=== PATIENT | male | born 1985 | race Caucasian/White ===

== ENCOUNTER 2018-07-13 15:19 | Inpatient (IN) | payer OTHER ==
--- NOTE | 2018-07-13 15:26 | PDOC ---
Rapid Medical Evaluation Chief Complaint: Vomiting/Diarrhea Time Seen by Provider: 07/13/18 15:22 Medical Evaluation: Allergies Allergy/AdvReac Type Severity Reaction Status Date / Time No Known Allergies Allergy Verified 07/13/18 15:22 07/13/18 15:22 I have performed a brief in person evaluation of this patient. The patient presents with a chief complaint of: N/V/D Pt states he has had 2-3 days of N/V/D. He was on abx for cellulitis of the leg two weeks ago. Pertinent PE: Skin: Clear Lungs: Clear Heart: RRR Abd: Nontender MS: Moves all extremities without difficulty. Neuro: Alert and oriented Psych: Appropriate affect I have ordered the following: basic labs and C diff The patient will proceed to: pt will go to the main ED for further evaluation. Discharge Disposition - Diagnosis Diarrhea Qualifiers: Diarrhea type: unspecified type Qualified Code(s): R19.7 - Diarrhea, unspecified - Referrals - Patient Instructions - Post Discharge Activity
[2018-07-13] MEDS ORDERED: SODIUM CHLORIDE 1,000 ML IV STA ×2 (17:51→19:40)
--- NOTE | 2018-07-13 17:54 | PDOC ---
Attending Attestation - HPI HPI: 07/13/18 19:13 The patient is a 33 yo M with a significant past medical history of recent Tx for L leg cellulitis (dx 2-3 wks ago and completed abx 1 wk ago) who presents with fevers, chills, body aches, SIMON, nasal congestion, neck pain, nausea, vomiting and diarrhea for about 48 hours. He states he has not been able to keep food down. SH: etoh occasional. smoke and marijuana quit 10 yr ago. All: nkda PSH: tonsillectomy. adenoids removed - Physicial Exam PE: 07/13/18 19:24 GENERAL: Well-appearing, Obese, No apparent distress. HEENT: Normocephalic, atraumatic. PERRL, EOM intact. NECK (+) Pain with extreme flexion and extension. NO rigidity. CARDIOVASCULAR: (+) Tachycardic. Normal S1, S2. Regular rhythm. PULMONARY: Clear to auscultation bilaterally. ABDOMEN: Protuberant. Soft, non-distended, non-tender. EXTREMITIES: (+) RLE erythematous consistent with cellulitis. Normal ROM in all four extremities. No gross deformities. SKIN: Warm, dry. No rash NEUROLOGICAL: No focal neurological deficits. AAox3. MS 5/5. No focal weakness. - Medical Decision Making 07/13/18 19:18 Documentation prepared by Julee Carrera, acting as medical insurance claims processor for Meagan Ny MD EXAM#: TYPE/EXAM: RESULT: [id number] RAD/CHEST X-RAY PORTABLE* HISTORY PROVIDED: Rule out sepsis. A single frontal portable projection of the chest at 6:55 PM is submitted. The heart size is enlarged. The lung aguilar are free of pulmonary infiltrates or pleural effusions. IMPRESSION: Cardiomegaly, no acute disease. Reported By: Lionel Mendoza MD 07/13/181934 <Julee Carrera - Last Filed: 07/13/18 19:43> - Resident Resident Name: Samy Marie - ED Attending Attestation I have performed the following: I have examined & evaluated the patient, The case was reviewed & discussed with the resident, I agree w/resident's findings & plan, Exceptions are as noted - Medical Decision Making 07/14/18 02:11 imp cellulitis admitted med.surg <Meagan Ny - Last Filed: 07/14/18 02:11>
[2018-07-13] MEDS ORDERED: ACETAMINOPHEN 1000 MG/100 ML VIAL (NON FORMULARY) IVPB ONE (17:55)
[2018-07-13] MEDS ORDERED: VANCOMYCIN 1,000 MG in DEXTROSE 5%-WATER - 250 ML IVPB ONE (18:09)
[2018-07-13] MEDS ORDERED: PIPERACILLIN/TAZOB 3.375 GM 3.375 GM in DEXTROSE 5%-WATER - 50 ML IVPB ONE (18:10)
--- NOTE | 2018-07-13 18:16 | PDOC ---
History of Present Illness - General Chief Complaint: Vomiting/Diarrhea Stated Complaint: WEAKNESS, DIARRHEA Time Seen by Provider: 07/13/18 15:22 - History of Present Illness Initial Comments: 07/13/18 18:19 33 yo M w/ no sig PMH other than recently tx for L leg cellulitis (dx 2-3 wks ago and completed abx 1 wk ago), p/w fevers, chills, body aches, SIMON, neck pain, n/v/d x1d. Pt says 2 days ago he had cold like sxs but then yesterday he began having multiple episodes of NBNB vomit and non bloody diarrhea (dozen episodes) . pt has not been able to keep food down. Also began having pounding b/l SIMON and neck stiffness/pain. Says when he moves head up it hurts neck. Denies urinary sxs abd pain, blood in stools, recent travel, hx STDs, photophobia. Took nyquil but did not help. 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 Has not had flu vaccine SH: etoh occasional. smoke and marijuana quit 10 yr ago. Meds: none All: nkda PSH: tonsillectomy. adenoids removed Past History - Past Medical History Allergies/Adverse Reactions: Allergies Allergy/AdvReac Type Severity Reaction Status Date / Time No Known Allergies Allergy Verified 07/13/18 15:22 Home Medications: Ambulatory Orders NK [No Known Home Medication] 07/13/18 COPD: No Other medical history: MORBID OBESITY - Immunization History Td Vaccination: Yes Immunization Up to Date: No - Suicide/Smoking/Psychosocial Hx Smoking Status: No Smoking History: Never smoked Number of Cigarettes Smoked Daily: 2 Information on smoking cessation initiated: No Hx Alcohol Use: No Drug/Substance Use Hx: No Substance Use Type: None Review of Systems - Review of Systems Constitutional: Yes: See HPI HEENTM: Yes: See HPI Respiratory: Yes: See HPI Cardiac (ROS): Yes: See HPI ABD/GI: Yes: See HPI : Yes: See HPI Musculoskeletal: Yes: See HPI Integumentary: Yes: See HPI Neurological: Yes: See HPI Endocrine: Yes: See HPI Hematologic/Lymphatic: Yes: See HPI *Physical Exam - Vital Signs Last Vital Signs Temp Pulse Resp BP Pulse Ox 100.5 F H 103 H 22 H 140/86 95 07/13/18 15:23 07/13/18 15:23 07/13/18 15:23 07/13/18 15:23 07/13/18 15:23 - Physical Exam Comments: 07/13/18 18:13 General: Well-nourished, mild distress, morbidly obese HEENT: NCAT, MMM Neck: TTP along posterior. neck pain when lifting head. no lymphadenopathy Respiratory: CTAB cardio: tachycardia RR S1 S2 no m/r/g. Abdomen: +BS , soft, NTND Extremities: radial 2+ b/l. R medial leg erythema warm to touch and TTP Skin: R medial leg erythema warm to touch and TTP Neuro: Alert and oriented x3, strength sensation grossly intact. Psych: Normal mood and affect ED Treatment Course - RADIOLOGY Radiology Studies Ordered: Category Date Time Status CHEST X-RAY PORTABLE* [RAD] Stat Radiology 07/13/18 17:49 Ordered Medical Decision Making - Medical Decision Making 07/13/18 18:16 33 yo M w/ no sig PMH other than recently tx for L leg cellulitis (dx 2-3 wks ago and completed abx 1 wk ago), p/w fevers, chills, body aches, SIMON, neck pain, n/v/d x1d. Now appears to have R leg cellulitis on exam. 100.5 F tachycardia tachypneac. Ddx: sepsis 2/2 cellulitis, bacteremia, flu, C. diff, meningitis (works in [place]) We will initiate sepsis w/u -CBC, CMP, coags, lactic, trop, VBG, EKG, CXR, UA, Ucx, Bcx -C diff toxin antigen -Flu swab -IVF bolus -IV vanc/zosyn -IV tylenol 07/13/18 19:[address] Salgado will f/u on labs and cx pt will likely require inpatient admission for sepsis 2/2 cellulitis *DC/Admit/Observation/Transfer Diagnosis at time of Disposition: Diarrhea Qualifiers: Diarrhea type: unspecified type Qualified Code(s): R19.7 - Diarrhea, unspecified - Referrals - Patient Instructions - Post Discharge Activity
[2018-07-13 19:16] LABS: VENOUS PC02 40.1 mmHg (38-52); VENOUS PH 7.45 (7.32-7.42); VENOUS PO2 38.7 mmHg (28-48)
[2018-07-13] MEDS ORDERED: ACETAMINOPHEN INJECTION 100 ML IVPB ONE (19:24)
[2018-07-13] MEDS ORDERED: PIPERACILLIN/TAZOB 3.375 GM 3.375 GM/50 ML BAG IVPB ONE (19:24)
[2018-07-13 19:25] LABS: BASO % 0.5 % (0-2.0); HEMATOCRIT 41.5 % (35.4-49); HEMOGLOBIN 13.7 GM/dL (11.7-16.9); LYMPH % 13.3 % (8-40); MEAN CELL VOLUME 84.6 fl (80-96); MEAN PLT VOLUME 8.7 fl (7.5-11.1); MONO % 10.9 % (3.8-10.2); NEUT % 75.3 % (42.8-82.8); PLATELET COUNT 224 K/MM3 (134-434); RBC 4.91 M/mm3 (4.00-5.60); RDW 14.2 % (11.9-15.9); WHITE BLOOD COUNT 18.7 K/mm3 (4.0-10.0)
[2018-07-13 19:37] LABS: INR 1.28 (0.83-1.09); PROTHROMBIN TIME (PATIENT) 15.1 SEC (9.7-13.0)
[2018-07-13 19:39] LABS: ACTIVATED PTT 28.9 SECONDS (25.2-36.5)
--- NOTE | 2018-07-13 20:19 | PDOC ---
*Physical Exam - Vital Signs Last Vital Signs Temp Pulse Resp BP Pulse Ox 102.5 F H 103 H 22 H 140/86 95 07/13/18 19:32 07/13/18 15:23 07/13/18 15:23 07/13/18 15:23 07/13/18 15:23 - Physical Exam Comments: GENERAL: Well-appearing, well-nourished. No apparent distress. HEENT: Normocephalic, atraumatic. PERRL, EOM intact. CARDIOVASCULAR: Tachycardic. Normal S1, S2. Regular rhythm. PULMONARY: Clear to auscultation bilaterally. ABDOMEN: Soft, non-distended, non-tender. EXTREMITIES: R Leg: R medial leg erythema warm to touch and TTP Normal ROM in all four extremities. No gross deformities. SKIN: R Leg: R medial leg erythema warm to touch and TTP NEUROLOGICAL: No focal neurological deficits. ED Treatment Course - LABORATORY CBC & Chemistry Diagram: 07/13/18 19:09 07/13/18 19:54 - ADDITIONAL ORDERS Additional order review: Laboratory Results 07/13/18 07/13/18 07/13/18 19:09 19:09 19:09 PT with INR 15.10 H INR 1.28 H PTT (Actin FS) 28.9 VBG pH POC VBG pCO2 POC VBG pO2 Mixed VBG HCO3 Sodium Potassium Chloride Carbon Dioxide Anion Gap BUN Creatinine Creat Clearance w eGFR Random Glucose Lactic Acid 1.1 Calcium Total Bilirubin AST ALT Alkaline Phosphatase Troponin I Cancelled Total Protein Albumin Lipase 07/13/18 07/13/18 19:09 18:45 PT with INR INR PTT (Actin FS) VBG pH 7.45 H POC VBG pCO2 40.1 POC VBG pO2 38.7 Mixed VBG HCO3 27.4 H Sodium Cancelled Potassium Cancelled Chloride Cancelled Carbon Dioxide Cancelled Anion Gap Cancelled BUN Cancelled Creatinine Cancelled Creat Clearance w eGFR Cancelled Random Glucose Cancelled Lactic Acid Calcium Cancelled Total Bilirubin Cancelled AST Cancelled ALT Cancelled Alkaline Phosphatase Cancelled Troponin I Total Protein Cancelled Albumin Cancelled Lipase Cancelled 07/13/18 19:09 Influenza Types A,B Antigen - Final Nasopharyngeal Swab - Final 07/13/18 19:09 RBC 4.91 MCV 84.6 MCHC 33.0 RDW 14.2 MPV 8.7 Neutrophils % 75.3 Lymphocytes % 13.3 Monocytes % 10.9 H Eosinophils % 0.0 Basophils % 0.5 - Medications Given in the ED: ED Medications Discontinued Medications Generic Name Dose Route Start Last Admin Trade Name Hugo PRN Reason Stop Dose Admin Acetaminophen 1,000 mg 07/13/18 17:55 07/13/18 19:31 Ofirmev Injection - IVPB 07/13/18 17:56 1,000 mg ONCE ONE Administration Sodium Chloride 1,000 mls @ 1,000 mls/hr 07/13/18 17:51 07/13/18 19:17 Normal Saline - IV 07/13/18 18:50 1,000 mls/hr ASDIR STA Administration Piperacillin Sod/Tazobactam 50 mls @ 100 mls/hr 07/13/18 18:10 07/13/18 20:04 Sod 3.375 gm/ Dextrose IVPB 07/13/18 18:39 100 mls/hr ONCE ONE Administration Protocol Medical Decision Making - Medical Decision Making Received patient as a sign out Fever: 102.5 HR: 103 RR: 22 WBC: 18.7 Source of infection: R leg cellulitis Patient is septic. We have started vanc and zosyn here in the ED. Will admit patient for further care. *DC/Admit/Observation/Transfer Diagnosis at time of Disposition: Sepsis Diarrhea Qualifiers: Diarrhea type: unspecified type Qualified Code(s): R19.7 - Diarrhea, unspecified - Discharge Dispostion Condition at time of disposition: Guarded Decision to Admit order: Yes - Referrals - Patient Instructions - Post Discharge Activity
[2018-07-13] MEDS ORDERED: VANCOMYCIN 1 GRAM (PRE-DOCKED) 1,000 MG/250 ML BAG IVPB ONE (20:25)
[2018-07-13 20:28] LABS: ALK PHOS 92 U/L (45-117); ANION GAP 9 MMOL/L (8-16); BILIRUBIN,TOTAL 0.5 mg/dL (0.2-1); BLOOD UREA NITROGEN 11 mg/dL (7-18); CALCIUM 8.4 mg/dL (8.5-10.1); CHLORIDE 104 mmol/L (98-107); CO2 26 mmol/L (21-32); GLUCOSE,RANDOM 96 mg/dL (74-106); POTASSIUM 3.3 mmol/L (3.5-5.1); SGOT/AST 48 U/L (15-37); SGPT/ALT 38 U/L (13-61); SODIUM 140 mmol/L (136-145); TOT PROT 6.7 g/dl (6.4-8.2)
--- NOTE | 2018-07-13 22:33 | PN ---
Teaching Attending Note Name of Resident: Jose Raul Arita ATTENDING PHYSICIAN STATEMENT I saw and evaluated the patient. I reviewed the resident's note and discussed the case with the resident. I agree with the resident's findings and plan as documented. SUBJECTIVE: Patient is a 33 year old man recently treated for Left leg cellulitis (dx 2-3 wks ago and completed abx 1 wk ago), presents with fevers, chills, body aches, headache, neck pain, nausea, vomiting and diarrhea for 1 day. Says that 2 days ago he had cold like symptoms but then yesterday he began having multiple episodes of NBNB vomit and non bloody diarrhea (dozen episodes). Arora not been able to keep food down. Also began having pounding headache and neck stiffness/ pain. Says when he moves head up it hurts neck. Denies urinary symptoms, abd pain, blood in stools, recent travel, hx STDs, photophobia. Took nyquil but did not help. 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 Has not had flu vaccine. Neck stiffness and headache stopped. OBJECTIVE: Alert and morbidly obese Vital Signs Period Temp Pulse Resp BP Sys/Forrester Pulse Ox Last 24 Hr 99.6 F-102.5 F 98-103 20-22 140-157/86-88 95-96 HEENT: No Jaundice, eye redness or discharge, PERRLA, EOMI. Normocephalic, atraumatic. External ears are normal and hearing is grossly intact. No nasal discharge. Neck: Supple, nontender. No palpable adenopathy or thyromegaly. No JVD Chest: Good effort. Clear to auscultation and percussion. Heart: Regular. No S3, rub or murmur Abdomen: Not distended, soft, nontender and no HSM. No rebound or guarding. Normoactive bowel sounds. Ext: Peripheral pulses intact. Right lower leg erythema, warm and tender. Skin: Warm and dry. No petechiae, rash or ecchymosis. Neuro: Alert. Oriented x3. CN 2-12 grossly intact. Sensation grossly intact in all four extremities and DTR are symmetric. Home Medications Medication Instructions Recorded NK [No Known Home Medication] 07/13/18 Abnormal Lab Results 1007/13/18 07/13/18 18:45 19:09 19:09 WBC 18.7 H Absolute Neuts (auto) 14.1 H Monocytes % 10.9 H PT with INR 15.10 H INR 1.28 H VBG pH 7.45 H Mixed VBG HCO3 27.4 H Potassium Calcium AST Albumin 07/13/18 19:54 WBC Absolute Neuts (auto) Monocytes % PT with INR INR VBG pH Mixed VBG HCO3 Potassium 3.3 L Calcium 8.4 L AST 48 H Albumin 3.0 L ASSESSMENT AND PLAN: 1. Sepsis due to right leg cellulitis - Will treat with IV Vancomycin and ensure adequate hydration. He recently got 2 weeks of antibiotics (does not remember the name) for left leg cellulitis, so diarrhea may due to C. Diff colitis or viral gastroenteritis in view of his constitutional symptoms. Send stool for C.diff toxin, stool analyses, check Mg+, give IV and PO KCL and consult ID. Will expand antibiotics coverage if CT abdomen/pelvis shows colitis. Hypokalemia likely due to diarrhea and vomiting. 2. Morbid Obesity - Will provide patient all the necessary assistance, counseling and positive reinforcement to facilitate weight loss. Consult hospital technician. 3. DVT prophylaxis - Lovenox 40 mg SQ q 12 hours. 4. Advance directives - Full code
--- NOTE | 2018-07-13 23:36 | HP ---
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 Pt endorses he has experienced approximately 12-13 episodes of watery, loose diarrhea. He has vomited two times since friday; vomitus is described as nonbillious and nonbloody. In addition, pt states he has felt rather warm and has been perspiring more. Endorses he also was having a headache during this time which has now subsided. According to pt, he was recently treated for a cellulites infection of his left lower extremity approximately 2-3 weeks ago. Pt was treated at [facility] urgent care on [facility] in [place] where he was sent home with 3 oral antibiotic medications and 1 topical antibiotic medication. Pt cannot recall names of the medications he was taking for his Cellulites. Pt does endorse frequently injuring his lower extremities while at work, often banging his legs while walking. Currently denies chest pain, shortness of breath, or lightheadedness. ER course was notable for: (1) WBC 18.2 (2) Chest xray--> Cardiomegaly (3) Potassium 3.3 Recent Travel: Denies PAST MEDICAL HISTORY: Denies PAST SURGICAL HISTORY: tonsillectomy. Adenoids removed Social History: Smoking:denies Alcohol: denies Drugs: denies Family History: Allergies No Known Allergies Allergy (Verified 07/13/18 15:22) HOME MEDICATIONS: Home Medications Medication Instructions Recorded NK [No Known Home Medication] 07/13/18 REVIEW OF SYSTEMS CONSTITUTIONAL: PRESENT fever, chills, diaphoresis, generalized weakness, malaise HEENT: Absent: rhinorrhea, nasal congestion, throat pain, throat swelling, difficulty swallowing, mouth swelling, ear pain, eye pain, visual changes CARDIOVASCULAR: Absent: chest pain, syncope, palpitations, irregular heart rate, lightheadedness , peripheral edema RESPIRATORY: Absent: cough, shortness of breath, dyspnea with exertion, orthopnea, wheezing, stridor, hemoptysis GASTROINTESTINAL: PRESENT: abdominal pain, nausea, vomiting, diarrhea GENITOURINARY: Absent: dysuria, frequency, urgency, hesitancy, hematuria, flank pain, genital pain MUSCULOSKELETAL: Absent: myalgia, arthralgia, joint swelling, back pain, neck pain SKIN: Absent: rash, itching, pallor HEMATOLOGIC/IMMUNOLOGIC: Absent: easy bleeding, easy bruising, lymphadenopathy, frequent infections ENDOCRINE: Absent: unexplained weight gain, unexplained weight loss, heat intolerance, cold intolerance NEUROLOGIC: Absent: headache, focal weakness or paresthesias, dizziness, unsteady gait, seizure, mental status changes, bladder or bowel incontinence PSYCHIATRIC: Absent: anxiety, depression, suicidal or homicidal ideation, hallucinations. PHYSICAL EXAMINATION Vital Signs - 24 hr 07/13/18 07/13/18 07/13/18 15:23 19:32 20:44 Temperature 100.5 F H 102.5 F H 99.6 F Pulse Rate 103 H 98 H Pulse Rate [ Left Apical] Respiratory 22 H 20 Rate Blood Pressure 140/86 157/88 Blood Pressure [Right Arm] O2 Sat by Pulse 95 96 Oximetry (%) 07/13/18 22:53 Temperature 98.5 F Pulse Rate Pulse Rate [ 85 Left Apical] Respiratory 18 Rate Blood Pressure Blood Pressure 128/84 [Right Arm] O2 Sat by Pulse 98 Oximetry (%) GENERAL: AAOx3, NAD HEAD: NC/AT EYES: EOMI, PERRLA EARS, NOSE, THROAT: MMM NECK: Supple, no jvd, no adenopathy LUNGS: Decreased BS at bases. HEART: RRR, No MRG, S1 S2 ABDOMEN: Morbidly obese MUSCULOSKELETAL:Full ROM throughout UPPER EXTREMITIES: No CCE LOWER EXTREMITIES: Cellulites R leg, onychomycosis b/l feet. No cracks or tears in heels or soles of feet NEUROLOGICAL: CN 2-12 intact PSYCHIATRIC: Cooperative. Good eye contact. Appropriate mood and affect. SKIN: Cellulites right lower extremity. Laboratory Results - last 24 hr 07/13/18 07/13/18 07/13/18 18:45 19:09 19:09 WBC 18.7 H RBC 4.91 Hgb 13.7 Hct 41.5 MCV 84.6 MCH 28.0 MCHC 33.0 RDW 14.2 Plt Count 224 MPV 8.7 Absolute Neuts (auto) 14.1 H Neutrophils % 75.3 Lymphocytes % 13.3 Monocytes % 10.9 H Eosinophils % 0.0 Basophils % 0.5 Nucleated RBC % 0 PT with INR INR PTT (Actin FS) VBG pH 7.45 H POC VBG pCO2 40.1 POC VBG pO2 38.7 Mixed VBG HCO3 27.4 H Sodium Cancelled Potassium Cancelled Chloride Cancelled Carbon Dioxide Cancelled Anion Gap Cancelled BUN Cancelled Creatinine Cancelled Creat Clearance w eGFR Cancelled Random Glucose Cancelled Lactic Acid Calcium Cancelled Total Bilirubin Cancelled AST Cancelled ALT Cancelled Alkaline Phosphatase Cancelled Troponin I Total Protein Cancelled Albumin Cancelled Lipase Cancelled 07/13/18 07/13/18 07/13/18 19:09 19:09 19:09 WBC RBC Hgb Hct MCV MCH MCHC RDW Plt Count MPV Absolute Neuts (auto) Neutrophils % Lymphocytes % Monocytes % Eosinophils % Basophils % Nucleated RBC % PT with INR 15.10 H INR 1.28 H PTT (Actin FS) 28.9 VBG pH POC VBG pCO2 POC VBG pO2 Mixed VBG HCO3 Sodium Potassium Chloride Carbon Dioxide Anion Gap BUN Creatinine Creat Clearance w eGFR Random Glucose Lactic Acid 1.1 Calcium Total Bilirubin AST ALT Alkaline Phosphatase Troponin I Cancelled Total Protein Albumin Lipase 07/13/18 19:54 WBC RBC Hgb Hct MCV MCH MCHC RDW Plt Count MPV Absolute Neuts (auto) Neutrophils % Lymphocytes % Monocytes % Eosinophils % Basophils % Nucleated RBC % PT with INR INR PTT (Actin FS) VBG pH POC VBG pCO2 POC VBG pO2 Mixed VBG HCO3 Sodium 140 Potassium 3.3 L Chloride 104 Carbon Dioxide 26 Anion Gap 9 BUN 11 Creatinine 1.0 Creat Clearance w eGFR > 60 Random Glucose 96 Lactic Acid Calcium 8.4 L Total Bilirubin 0.5 AST 48 H ALT 38 Alkaline Phosphatase 92 Troponin I Total Protein 6.7 Albumin 3.0 L Lipase ASSESSMENT/PLAN: 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 # Right Leg Cellulitis -Pt has experienced multiple episodes (12-13) of watery, nonbloody diarrhea since Friday. May have C Diff infection in light of recent Cellulites treatment with possibly clindamycin (Pt doesn't recall name of medication). -Vanco 1 gm q12 hr -I.D Consult #Possible C-Diff infection 2/2 cellulites treatment with Clindamycin? - Stool For C-Diff Antigen -ID Consult - 2/4 SIRS Criteria met--> HR > 90 and WBC 18.5. Likely source leg cellulites or possibly C-Diff. FEN NS@100cc/hr Monitor Potassium level Regular Diet DVT ppx: Heparin SQ TID Dispo: Continue to monitor Visit type - Emergency Visit Emergency Visit: Yes ED Registration Date: 07/13/18 Care time: The patient presented to the Emergency Department on the above date and was hospitalized for further evaluation of their emergent condition. - New Patient This patient is new to me today: Yes Date on this admission: 07/14/18 - Critical Care Critical Care patient: No
[2018-07-14] MEDS ORDERED: SODIUM CHLORIDE 1,000 ML IV SCH (00:15)
[2018-07-14] MEDS ORDERED: POTASSIUM CHLORIDE TABS 20 MEQ TABLET.ER (FP) PO ONE ×2 (01:45→02:48)
[2018-07-14] MEDS ORDERED: HEPARIN NA (PORCINE) 5,000 UNITS/ML 1ML VIAL ONE (01:45)
[2018-07-14] MEDS: HEPARIN NA (PORCINE) 5,000 UNITS/ML 1ML VIAL SQ SCH ×4 (02:17→21:44)
[2018-07-14] MEDS: POTASSIUM CHLORIDE TABS 20 MEQ TABLET.ER (FP) PO SCH ×2 (02:59→10:53)
[2018-07-14 04:57] VITALS: BMI 55.8
[2018-07-14 07:59] LABS: BASO % 0.5 % (0-2.0); EOS % 0.1 % (0-4.5); HEMATOCRIT 35.7 % (35.4-49); LYMPH % 17.6 % (8-40); MCH 28.5 pg (25.7-33.7); MCHC 33.7 g/dl (32.0-35.9); MEAN CELL VOLUME 84.6 fl (80-96); MEAN PLT VOLUME 8.2 fl (7.5-11.1); MONO % 9.6 % (3.8-10.2); NEUT % 72.2 % (42.8-82.8); PLATELET COUNT 180 K/MM3 (134-434); RBC 4.22 M/mm3 (4.00-5.60); RDW 14.1 % (11.9-15.9); WHITE BLOOD COUNT 12.1 K/mm3 (4.0-10.0)
[2018-07-14 08:11] LABS: INR 1.32 (0.83-1.09); PROTHROMBIN TIME (PATIENT) 15.6 SEC (9.7-13.0)
[2018-07-14 08:14] LABS: ACTIVATED PTT 27.3 SECONDS (25.2-36.5)
[2018-07-14 08:40] LABS: ANION GAP 9 MMOL/L (8-16); BLOOD UREA NITROGEN 13 mg/dL (7-18); CALCIUM 7.8 mg/dL (8.5-10.1); CHLORIDE 105 mmol/L (98-107); CO2 26 mmol/L (21-32); CREATININE 0.8 mg/dL (0.55-1.3); GLUCOSE,RANDOM 91 mg/dL (74-106); MAGNESIUM 2.2 mg/dL (1.8-2.4); PHOSPHOROUS 2.1 mg/dL (2.5-4.9); POTASSIUM 3.3 mmol/L (3.5-5.1); SODIUM 140 mmol/L (136-145)
[2018-07-14] MEDS ORDERED: FLU VACCINE QUAD 60 MCG/0.5 ML (MDV 18-19) IM ONE (10:00)
[2018-07-14] MEDS ORDERED: ACETAMINOPHEN 325 MG TABLET (FP) PO PRN (10:51)
--- NOTE | 2018-07-14 11:45 | PN ---
Progress Note (short form) - Note Progress Note: ID Consult dictated Sepsis ? skin source Cellulitis R LE ? C difficile colitis Await c/s Continue vancomycin/ zosyn
--- NOTE | 2018-07-14 12:23 | CONS ---
DATE OF CONSULTATION: DATE OF DICTATION: 07/14/2018 HISTORY OF PRESENT ILLNESS: The patient is a 33-year-old morbidly obese, but otherwise healthy male who is evaluated for sepsis syndrome. The patient states that approximately 2 weeks ago, he had developed cellulitis of his left lower extremity. He took 2 oral antibiotics, the names of which he was unsure of, however, he reports completing the antibiotics approximately 2 weeks ago. This past July 11, he developed abrupt onset of fever, body ache, neck pain, nausea, vomiting, and diarrhea. The onset was approximately 1 week after completing the antibiotics. He reports the cellulitis had completely resolved. He presented to the emergency room where he was noted to be febrile, tachycardic, and tachypneic. He had a markedly elevated white blood cell count of 18,000. Cultures were obtained. He was empirically treated with vancomycin and Zosyn. A CT scan of the abdomen and pelvis was performed because of abdominal complaints, gastrointestinal complaints, and showed some gallstones, but no evidence of acute cholecystitis, no evidence of colitis. Patient reports feeling better. He still has some headache and neck pain. He reports nausea, vomiting, and diarrhea have improved. Cultures are pending. His C. difficile is also pending. PAST MEDICAL HISTORY: Negative. ALLERGIES: No known allergies. MEDICATIONS: No medications. 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 A nonsmoker, occasional EtOH. He lives alone. No ill contacts. However, he reports being in contact with many people at his employment. SYSTEMS REVIEW: Neurologic: No loss of consciousness, seizure activity, or focal weakness. Cardiac: Negative for chest pain or palpitations. Respiratory: Negative for cough or sputum production. Gastrointestinal: As per HPI. Genitourinary: Negative for urinary tract infection. LABORATORY DATA: White count 18,000, hematocrit 35.7, platelet count 180. BUN 13, creatinine 0.8, lactic acid 1.1. Flu swab negative. Blood cultures pending. Chest x-ray cardiomegaly, no infiltrate. Urine is pending. PHYSICAL EXAMINATION: General: He is awake. He is morbidly obese. He is not acutely toxic-appearing. Vital signs: Temperature 98.3, maximum temperature 102.5, blood pressure 125/69, pulse 90 and regular, respirations 20 per minute. HEENT: Sclerae anicteric. Oropharynx negative. Neck: Supple. Heart: Heart sounds S1, S2. Lungs: Clear. Abdomen: Obese, nontender. Extremities: Positive for edema. There is erythema and warmth present on the right lower extremity, on the right pretibial area. There is no lymphangitic streaking, no crepitus or fluctuance. Left lower extremity no evidence of cellulitis. IMPRESSION: 1. Sepsis, possible skin source. 2. Cellulitis of the right lower extremity. 3. Possible Clostridium difficile colitis secondary to recent antibiotic usage. Await cultures and stool for C. difficile. Will treat with vancomycin for cellulitis of the right lower extremity. Will continue Zosyn in light of high grade fever and leukocytosis pending cultures. Elevation, right lower extremity. Will follow. Thank you for the kind referral. STEPHENIE BELL M.D. JEANNE/[id number]
[2018-07-14] MEDS: POTASSIUM CHLORIDE ORAL LIQUID 20 MEQ/15 ML PO SCH ×2 (12:27→21:44)
[2018-07-14] MEDS ORDERED: DEXTROSE 5%-WATER 100 ML IVPB ONE ×2 (12:29→16:34)
[2018-07-14] MEDS ORDERED: PIPERACILLIN/TAZOBACTAM 4.5 GM VIAL IVPB ONE ×2 (12:29→16:34)
[2018-07-14] MEDS: PIPERACILLIN/TAZOB 4.5 GM 4.5 GM in DEXTROSE 5%-WATER 100 ML IVPB SCH ×2 (12:31→18:26)
[2018-07-14] MEDS: LACTOBACILLUS ACIDOPHILUS 1 TABLET PO SCH (12:31)
[2018-07-14 12:39] LABS: URINE APPEARANCE CLEAR; URINE BILIRUBIN NEGATIVE (<2.0 mg/dL); URINE COLOR YELLOW; URINE GLUCOSE (UA) NEGATIVE (NEGATIVE); URINE KETONE 1+ (NEGATIVE); URINE LEUK ESTERASE NEGATIVE (NEGATIVE); URINE NITRITE NEGATIVE (NEGATIVE); URINE PROTEIN 1+ (NEGATIVE); URINE UROBILINOGEN NEGATIVE mg/dL (0.2-1.0)
--- NOTE | 2018-07-14 12:56 | EKG ---
Test Reason : Blood Pressure : / mmHG Vent. Rate : 105 BPM Atrial Rate : 105 BPM P-R Int : 156 ms QRS Dur : 094 ms QT Int : 334 ms P-R-T Axes : 034 048 017 degrees QTc Int : 441 ms SINUS TACHYCARDIA OTHERWISE NORMAL ECG NO PREVIOUS ECGS AVAILABLE Confirmed by MD CAMERON, KIERRA ([id number]) on 07/14/2018 12:56:23 PM Referred By: Confirmed By:KIERRA BARNES MD
[2018-07-14 13:08] LABS: URINE MUCUS RARE
--- NOTE | 2018-07-14 14:14 | PN ---
Teaching Attending Note Name of Resident: Susy Adams ATTENDING PHYSICIAN STATEMENT I saw and evaluated the patient. I reviewed the resident's note and discussed the case with the resident. I agree with the resident's findings and plan as documented. SUBJECTIVE:states overall feels improved. had 1 loose BM earlier today but overall much improved. states he currently has SIMON with some neck pain. denies Cp , SOB, fever, chills, N/V/C/D or photophobia last HIV test was 1 year ago OBJECTIVE: Last Vital Signs Temp Pulse Resp BP Pulse Ox 98.3 F 90 20 125/69 97 07/14/18 10:00 07/14/18 10:00 07/14/18 10:00 07/14/18 10:07/13/18 23:41 General NAD HEENT EOMI, PERRL, no photophobia. +restricted ROM of turning head to the L. no restriction up/down CV S1 S2 rrr no murmur/rub/gallop Lungs CTA B/L no wheezing/rales/rhonchi abdomen soft NT/ND obese Extremities circumferential erythema to R mid mccartney. tender on the medial aspect. area is warm. no induration. pulse intact. no lesions or abrasions noted on feet or on interdigit webbing. nothing appreciated on LLE Neuro negative kernigs and brudniski sign ASSESSMENT AND PLAN: 33yo M wtih PMH morbid obesity and recently treated for LLE cellulitis with 2 different abx (unknown names) presented with fever/chills/diarrhea and found to be septic due to RLE cellulitis 1. Sepsis due to RLE cellulitis- unclear source for infection. Tm 102.5. 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 started on vanco/zosyn. f/u Cx. ID consulted. check HIV and A1c. f/u cx. flu negative 2. diarrhea- most likely antibiotic assoc diarrhea vs gastroenteritis however can not r/o cdiff. diarrhea already improved. awaiting Cdiff cx. start bacid. CT abdomen/pelvis done to r/o infection 3. SIMON- likely due to infection. concern was raised for meningitis however with lack of risk factors or other symptoms and clear source of infection available would hold off on LP at this time. tylenol as needed for SIMON. if worsens or develops neurological deficits would consider CT 4. Hypokalemia- due to diarrhea. replete 5. Hypophosphatemia- neutraphos 6. Morbid obesity- BMI 55.8. bariatric referral as outpatient 7. DVT ppx- hep sq
[2018-07-14] MEDS ORDERED: NAPH,MB-DB/K PH,MBDB POWDER PACKET PO ONE (15:04)
[2018-07-14] MEDS ORDERED: PT OWN MED DRAWER 7, Y5N ONE (15:12)
[2018-07-14] MEDS: VANCOMYCIN 1,500 MG in DEXTROSE 5%-WATER - 500 ML IVPB SCH (15:28)
[2018-07-14] MEDS: SODIUM CHLORIDE 1,000 ML IV SCH ×2 (15:34→21:45)
--- NOTE | 2018-07-14 18:12 | PN ---
Physical Exam: SUBJECTIVE: Patient seen and examined at bedside this morning. Patient reported 1 episode of loose bowel movement this morning, otherwise his last episode was 7pm last night. Patient also reports neck pain that started about the same time when he had the diarrhea and vomiting. Otherwise, he has not changes in vision, no photophobia, no chest pain, no SOB, no abdominal pain, no urinary symptoms. OBJECTIVE: Vital Signs Period Temp Pulse Resp BP Sys/Forrester Pulse Ox Last 24 Hr 97.7 F-102.5 F 85-98 18-20 124-157/55-88 96-98 GENERAL: The patient is awake, alert, and fully oriented, in no acute distress. HEAD: Normal with no signs of trauma. EYES: PERRLA, EOMI, sclera anicteric, conjunctiva clear. No ptosis. NECK: Trachea midline, full range of motion, supple. LUNGS: Breath sounds equal, clear to auscultation bilaterally. HEART: Regular rate and rhythm, S1, S2 without murmur, rub or gallop. ABDOMEN: Soft, nontender, nondistended, normoactive bowel soundsl EXTREMITIES: 2+ pulses, warm, well-perfused, no edema. RLE: +erythema, + tenderness, +warmth at the mid-mccartney area, with more erythema medially. NEUROLOGICAL: Cranial nerves II through XII grossly intact. Normal speech, gait not observed. PSYCH: Normal mood, normal affect. SKIN: Warm, dry, normal turgor, no rashes or lesions noted Laboratory Results - last 24 hr 07/13/18 07/13/18 07/13/18 18:45 19:09 19:09 WBC 18.7 H RBC 4.91 Hgb 13.7 Hct 41.5 MCV 84.6 MCH 28.0 MCHC 33.0 RDW 14.2 Plt Count 224 MPV 8.7 Absolute Neuts (auto) 14.1 H Neutrophils % 75.3 Lymphocytes % 13.3 Monocytes % 10.9 H Eosinophils % 0.0 Basophils % 0.5 Nucleated RBC % 0 PT with INR INR PTT (Actin FS) VBG pH 7.45 H POC VBG pCO2 40.1 POC VBG pO2 38.7 Mixed VBG HCO3 27.4 H Sodium Cancelled Potassium Cancelled Chloride Cancelled Carbon Dioxide Cancelled Anion Gap Cancelled BUN Cancelled Creatinine Cancelled Creat Clearance w eGFR Cancelled Random Glucose Cancelled Lactic Acid Calcium Cancelled Phosphorus Magnesium Total Bilirubin Cancelled AST Cancelled ALT Cancelled Alkaline Phosphatase Cancelled Troponin I Total Protein Cancelled Albumin Cancelled Lipase Cancelled Urine Color Urine Appearance Urine pH Ur Specific [place] Urine Protein Urine Glucose (UA) Urine Ketones Urine Blood Urine Nitrite Urine Bilirubin Urine Urobilinogen Ur Leukocyte Esterase Urine WBC (Auto) Urine RBC (Auto) Urine Mucus 07/13/18 07/13/18 07/13/18 19:09 19:09 19:09 WBC RBC Hgb Hct MCV MCH MCHC RDW Plt Count MPV Absolute Neuts (auto) Neutrophils % Lymphocytes % Monocytes % Eosinophils % Basophils % Nucleated RBC % PT with INR 15.10 H INR 1.28 H PTT (Actin FS) 28.9 VBG pH POC VBG pCO2 POC VBG pO2 Mixed VBG HCO3 Sodium Potassium Chloride Carbon Dioxide Anion Gap BUN Creatinine Creat Clearance w eGFR Random Glucose Lactic Acid 1.1 Calcium Phosphorus Magnesium Total Bilirubin AST ALT Alkaline Phosphatase Troponin I Cancelled Total Protein Albumin Lipase Urine Color Urine Appearance Urine pH Ur Specific [place] Urine Protein Urine Glucose (UA) Urine Ketones Urine Blood Urine Nitrite Urine Bilirubin Urine Urobilinogen Ur Leukocyte Esterase Urine WBC (Auto) Urine RBC (Auto) Urine Mucus 07/13/18 07/14/18 07/14/18 19:54 07:00 07:00 WBC 12.1 H RBC 4.22 Hgb 12.0 Hct 35.7 MCV 84.6 MCH 28.5 MCHC 33.7 RDW 14.1 Plt Count 180 MPV 8.2 Absolute Neuts (auto) 8.7 H Neutrophils % 72.2 Lymphocytes % 17.6 D Monocytes % 9.6 Eosinophils % 0.1 D Basophils % 0.5 Nucleated RBC % 0 PT with INR 15.60 H INR 1.32 H PTT (Actin FS) 27.3 VBG pH POC VBG pCO2 POC VBG pO2 Mixed VBG HCO3 Sodium 140 Potassium 3.3 L Chloride 104 Carbon Dioxide 26 Anion Gap 9 BUN 11 Creatinine 1.0 Creat Clearance w eGFR > 60 Random Glucose 96 Lactic Acid Calcium 8.4 L Phosphorus Magnesium Total Bilirubin 0.5 AST 48 H ALT 38 Alkaline Phosphatase 92 Troponin I Total Protein 6.7 Albumin 3.0 L Lipase Urine Color Urine Appearance Urine pH Ur Specific [place] Urine Protein Urine Glucose (UA) Urine Ketones Urine Blood Urine Nitrite Urine Bilirubin Urine Urobilinogen Ur Leukocyte Esterase Urine WBC (Auto) Urine RBC (Auto) Urine Mucus 07/14/18 07/14/18 07:00 09:00 WBC RBC Hgb Hct MCV MCH MCHC RDW Plt Count MPV Absolute Neuts (auto) Neutrophils % Lymphocytes % Monocytes % Eosinophils % Basophils % Nucleated RBC % PT with INR INR PTT (Actin FS) VBG pH POC VBG pCO2 POC VBG pO2 Mixed VBG HCO3 Sodium 140 Potassium 3.3 L Chloride 105 Carbon Dioxide 26 Anion Gap 9 BUN 13 Creatinine 0.8 Creat Clearance w eGFR > 60 Random Glucose 91 Lactic Acid Calcium 7.8 L Phosphorus 2.1 L Magnesium 2.2 Total Bilirubin AST ALT Alkaline Phosphatase Troponin I Total Protein Albumin Lipase Urine Color Yellow Urine Appearance Clear Urine pH 5.0 Ur Specific [place] 1.023 Urine Protein 1+ H Urine Glucose (UA) Negative Urine Ketones 1+ H Urine Blood Negative Urine Nitrite Negative Urine Bilirubin Negative Urine Urobilinogen Negative Ur Leukocyte Esterase Negative Urine WBC (Auto) 2 Urine RBC (Auto) 1 Urine Mucus Rare Active Medications Generic Name Dose Route Start Last Admin Trade Name Freq PRN Reason Stop Dose Admin Acetaminophen 650 mg 07/14/18 10:51 07/14/18 12:27 Tylenol - PO 650 mg Q6H PRN Administration Fever Or Pain Heparin Sodium (Porcine) 5,000 unit 07/13/18 23:45 07/14/18 15:29 Heparin - SQ 5,000 unit TID BLANQUITA Administration Vancomycin HCl 1,500 mg/ 500 mls @ 250 mls/hr 07/14/18 13:00 07/14/18 15:28 Dextrose IVPB 250 mls/hr Q12H BLANQUITA Administration Protocol Piperacillin Sod/Tazobactam 100 mls @ 200 mls/hr 07/14/18 12:00 07/14/18 12: 31 Sod 4.5 gm/ Dextrose IVPB 200 mls/hr Q8H-IV BLANQUITA Administration Protocol Sodium Chloride 1,000 mls @ 125 mls/hr 07/14/18 15:17 07/14/18 15:34 Normal Saline - IV 125 mls/hr ASDIR BLANQUITA Administration Lactobacillus Acidophilus 1 tab 07/14/18 12:15 07/14/18 12:31 Bacid - PO 1 tab DAILY BLANQUITA Administration Potassium Chloride 40 meq 07/14/18 12:15 07/14/18 12:27 Potassium Chloride Oral Liquid PO Not Given BID [facility] ASSESSMENT/PLAN: Patient is a 33 year old male with past medical history of morbid obesity, presented with chills, vomiting, diarrhea for 2 days. Patient also noted redness and pain on the RLE. He was noted to be tachycardic and febrile at the ED. Of note, patient was treated recently for LLE cellulitis with 2 oral and 1 topical antibiotics. #Sepsis likely 2/2 RLE cellulitis -ID consulted. Recommendations appreciated. -Continue vancomycin 1500mg q12 and zosyn 3.375 q8 pending cultures. -HIV and A1c levels ordered -Blood cx ordered #Diarrhea: resolving -CT abdomen and pelvis - enlarged fatty liver; no colitis, no bowel inflammation , no obstruction -may be 2/2 acute gastroenteritis vs antibiotic associated diarrhea vs C. diff -stool cx and c.diff ordered. -Bacid started. #Headache and neck pain -Likely due to ongoing cellulitis -Negative brudzinkski and Kernig's -Can not totally rule out meningitis, will continue to monitor for now -will hold off LP at this time -Tylenol q6 PRN for pain #FEN -Not on any standing fluids -Encourage increased oral fluid intake -HypoK, hypoMg, will replete as necessary -routine bmp monitoring -Regular diet #Prophylaxis -Heparin 5000 units sq tid #Disposition -admit to med-surg Visit type - Emergency Visit Emergency Visit: Yes ED Registration Date: 07/13/18 Care time: The patient presented to the Emergency Department on the above date and was hospitalized for further evaluation of their emergent condition. - New Patient This patient is new to me today: Yes Date on this admission: 07/14/18 - Critical Care Critical Care patient: No
[2018-07-15] MEDS: VANCOMYCIN 1,500 MG in DEXTROSE 5%-WATER - 500 ML IVPB SCH ×2 (00:20→14:43)
[2018-07-15] MEDS ORDERED: PIPERACILLIN/TAZOBACTAM 4.5 GM VIAL IVPB ONE ×2 (03:31→10:36)
[2018-07-15] MEDS ORDERED: DEXTROSE 5%-WATER 100 ML IVPB ONE ×2 (03:31→10:36)
[2018-07-15] MEDS: PIPERACILLIN/TAZOB 4.5 GM 4.5 GM in DEXTROSE 5%-WATER 100 ML IVPB SCH ×2 (03:39→10:46)
[2018-07-15] MEDS: HEPARIN NA (PORCINE) 5,000 UNITS/ML 1ML VIAL SQ SCH ×3 (06:17→22:00)
[2018-07-15 08:07] LABS: BASO % 0.3 % (0-2.0); EOS % 0.7 % (0-4.5); HEMOGLOBIN 12.6 GM/dL (11.7-16.9); LYMPH % 13.1 % (8-40); MCH 27.8 pg (25.7-33.7); MCHC 32.3 g/dl (32.0-35.9); MEAN CELL VOLUME 85.9 fl (80-96); MEAN PLT VOLUME 8.8 fl (7.5-11.1); NEUT % 78.9 % (42.8-82.8); PLATELET COUNT 223 K/MM3 (134-434); RBC 4.54 M/mm3 (4.00-5.60); RDW 14.2 % (11.9-15.9); WHITE BLOOD COUNT 10.1 K/mm3 (4.0-10.0)
[2018-07-15 08:59] LABS: ALBUMIN 2.8 g/dl (3.4-5.0); ALK PHOS 87 U/L (45-117); ANION GAP 8 MMOL/L (8-16); BILIRUBIN,TOTAL 0.6 mg/dL (0.2-1); BLOOD UREA NITROGEN 11 mg/dL (7-18); CALCIUM 8.5 mg/dL (8.5-10.1); CHLORIDE 105 mmol/L (98-107); CO2 27 mmol/L (21-32); CREATININE 0.8 mg/dL (0.55-1.3); GLUCOSE,RANDOM 86 mg/dL (74-106); MAGNESIUM 2.4 mg/dL (1.8-2.4); PHOSPHOROUS 3.2 mg/dL (2.5-4.9); POTASSIUM 3.6 mmol/L (3.5-5.1); SGOT/AST 42 U/L (15-37); SGPT/ALT 45 U/L (13-61); SODIUM 140 mmol/L (136-145); TOT PROT 6.6 g/dl (6.4-8.2)
[2018-07-15] MEDS: LACTOBACILLUS ACIDOPHILUS 1 TABLET PO SCH (10:46)
[2018-07-15] MEDS: POTASSIUM CHLORIDE ORAL LIQUID 20 MEQ/15 ML PO SCH (10:46)
--- NOTE | 2018-07-15 12:08 | PN ---
Progress Note, Physician History of Present Illness: Feeling better No c/o leg pain No c/o headache/ neck pain Temps down afebrile WBC improved 10K BC (-) C diff (-) Flu swab (-) - Current Medication List Current Medications: Active Medications Acetaminophen (Tylenol -) 650 mg PO Q6H PRN PRN Reason: Fever Or Pain Last Admin: 07/14/18 12:27 Dose: 650 mg Heparin Sodium (Porcine) (Heparin -) 5,000 unit SQ TID BLANQUITA Last Admin: 07/15/18 06:17 Dose: 5,000 unit Vancomycin HCl 1,500 mg/ (Dextrose) 500 mls @ 250 mls/hr IVPB Q12H BLANQUITA; Protocol Last Admin: 07/15/18 00:20 Dose: 250 mls/hr Piperacillin Sod/Tazobactam (Sod 4.5 gm/ Dextrose) 100 mls @ 200 mls/hr IVPB Q8H-IV BLANQUITA; Protocol Last Admin: 07/15/18 10:46 Dose: 200 mls/hr Sodium Chloride (Normal Saline -) 1,000 mls @ 125 mls/hr IV ASDIR BLANQUITA Last Admin: 07/14/18 21:45 Dose: 125 mls/hr Lactobacillus Acidophilus (Bacid -) 1 tab PO DAILY BLANQUITA Last Admin: 07/15/18 10:46 Dose: 1 tab Potassium Chloride (Potassium Chloride Oral Liquid) 40 meq PO BID BLANQUITA Last Admin: 07/15/18 10:46 Dose: 40 meq - Objective Vital Signs: Vital Signs Temperature 97.5 F L 07/15/18 10:38 Pulse Rate 88 07/15/18 10:38 Respiratory Rate 20 07/15/18 10:38 Blood Pressure 147/71 07/15/18 10:38 O2 Sat by Pulse Oximetry (%) 97 07/14/18 21:00 Constitutional: Yes: No Distress, Obese Eyes: Yes: Conjunctiva Clear Cardiovascular: Yes: Regular Rate and Rhythm, S1, S2 Respiratory: Yes: CTA Bilaterally Gastrointestinal: Yes: Normal Bowel Sounds, Soft. No: Tenderness Extremities: Yes: Other (dcreased erythema/ warmth R LE) Edema: Yes Edema: LLE: 2+, RLE: 2+ Labs: CBC, BMP 07/15/18 06:30 07/15/18 06:30 INR, PTT INR 1.32 (0.83-1.09) H 07/14/18 07:00 Assessment/Plan Cellulitis R LE Sepsis secondary to cellulitis Fever/ leukocytosis- improved D/C zosyn Continue vancomycin additional 24hr
--- NOTE | 2018-07-15 14:47 | PN ---
Teaching Attending Note Name of Resident: Susy Adams ATTENDING PHYSICIAN STATEMENT I saw and evaluated the patient. I reviewed the resident's note and discussed the case with the resident. I agree with the resident's findings and plan as documented. SUBJECTIVE:clinically improved. states neck stiffness resolved. abdominal pain resolved. stools are becoming more solid. denies CP, SOB, fever, chills, N/V/C/D , denies having RUQ pain after eating OBJECTIVE: Last Vital Signs Temp Pulse Resp BP Pulse Ox 97.5 F L 88 20 147/71 97 07/15/18 10:38 07/15/18 10:38 07/15/18 10:38 07/15/18 10:38 07/14/18 21:00 General NAD abdomen soft NT/ND obese neg rizzo sign Extremities R mid mccartney, erythema and tenderness on medial aspect. no warmth ASSESSMENT AND PLAN: 33yo M [facility] PMH morbid obesity and recently treated for LLE cellulitis with 2 different abx (unknown names) presented with fever/chills/diarrhea and found to be septic due to RLE cellulitis 1. Sepsis due to RLE cellulitis- unclear source for infection. afebrile. leukocytosis trending down. clinically improved. on Vanco/zosyn. would cont for now. can likely transition to po in 24H. will d/w ID. HIV and A1c negative. Cx negative. d/c IVF 2. diarrhea- most likely antibiotic assoc diarrhea vs gastroenteritis however can not r/o cdiff. diarrhea mostly resolved. already improved. awaiting Cdiff cx. start bacid. CT abdomen/pelvis done to r/o infection 3. Enlarged GB- seen on CT. has no pain or symptoms. Bili normal. can f/u with surgeon as outpatient 4. SIMON- likely due to infection. now resolved. 5. Hypokalemia- due to diarrhea. resolved 6. Hypophosphatemia- resolved 7. Morbid obesity- BMI 55.8. counselled on lifestyle modifications. diet and weight loss. bariatric referral as outpatient 8. DVT ppx- hep sq 9. anticipate discharge in next 24-48H
--- NOTE | 2018-07-15 15:20 | PN ---
Physical Exam: SUBJECTIVE: Patient seen and examined at bedside this morning. No acute events overnight. Patient has no new complaints and reports improvement of headache and neck pain. His leg pain also improved. OBJECTIVE: Vital Signs Period Temp Pulse Resp BP Sys/Forrester Pulse Ox Last 24 Hr 97.5 F-98 F 84-89 18-20 121-158/71-93 97 GENERAL: The patient is awake, alert, and fully oriented, in no acute distress. HEAD: Normal with no signs of trauma. EYES: PERRLA, EOMI, sclera anicteric, conjunctiva clear. No ptosis. NECK: Trachea midline, full range of motion, supple. LUNGS: Breath sounds equal, clear to auscultation bilaterally. HEART: Regular rate and rhythm, S1, S2 without murmur, rub or gallop. ABDOMEN: Soft, nontender, nondistended, normoactive bowel sounds EXTREMITIES: 2+ pulses, warm, well-perfused, no edema. RLE: +erythema, + tenderness, +warmth at the mid-mccartney area, much improved than yesterday NEUROLOGICAL: Cranial nerves II through XII grossly intact. Normal speech, gait not observed. PSYCH: Normal mood, normal affect. SKIN: Warm, dry, normal turgor, no rashes or lesions noted Laboratory Results - last 24 hr 07/14/18 07/14/18 07/15/18 17:00 17:00 06:30 WBC 10.1 H RBC 4.54 Hgb 12.6 Hct 39.0 MCV 85.9 MCH 27.8 MCHC 32.3 RDW 14.2 Plt Count 223 D MPV 8.8 Absolute Neuts (auto) 8.0 Neutrophils % 78.9 Lymphocytes % 13.1 D Monocytes % 7.0 Eosinophils % 0.7 D Basophils % 0.3 Nucleated RBC % 0 Sodium Potassium Chloride Carbon Dioxide Anion Gap BUN Creatinine Creat Clearance w eGFR Random Glucose Hemoglobin A1c % 5.7 Calcium Phosphorus Magnesium Total Bilirubin AST ALT Alkaline Phosphatase Total Protein Albumin HIV 1&2 Antibody Screen Negative HIV P24 Antigen Negative 07/15/18 06:30 WBC RBC Hgb Hct MCV MCH MCHC RDW Plt Count MPV Absolute Neuts (auto) Neutrophils % Lymphocytes % Monocytes % Eosinophils % Basophils % Nucleated RBC % Sodium 140 Potassium 3.6 Chloride 105 Carbon Dioxide 27 Anion Gap 8 BUN 11 Creatinine 0.8 Creat Clearance w eGFR > 60 Random Glucose 86 Hemoglobin A1c % Calcium 8.5 Phosphorus 3.2 Magnesium 2.4 Total Bilirubin 0.6 AST 42 H ALT 45 Alkaline Phosphatase 87 Total Protein 6.6 Albumin 2.8 L HIV 1&2 Antibody Screen HIV P24 Antigen Active Medications Generic Name Dose Route Start Last Admin Trade Name Giorgioq PRN Reason Stop Dose Admin Acetaminophen 650 mg 07/14/18 10:51 07/14/18 12:27 Tylenol - PO 650 mg Q6H PRN Administration Fever Or Pain Heparin Sodium (Porcine) 5,000 unit 07/13/18 23:45 07/15/18 14:51 Heparin - SQ 5,000 unit TID BLANQUITA Administration Vancomycin HCl 1,500 mg/ 500 mls @ 250 mls/hr 07/14/18 13:00 07/15/18 14:43 Dextrose IVPB 250 mls/hr Q12H BLANQUITA Administration Protocol Lactobacillus Acidophilus 1 tab 07/14/18 12:15 07/15/18 10:46 Bacid - PO 1 tab DAILY BLANQUITA Administration ASSESSMENT/PLAN: Patient is a 33 year old male with past medical history of morbid obesity, presented with chills, vomiting, diarrhea for 2 days. Patient also noted redness and pain on the RLE. He was noted to be tachycardic and febrile at the ED. Of note, patient was treated recently for LLE cellulitis with 2 oral and 1 topical antibiotics. #Sepsis likely 2/2 RLE cellulitis -ID consulted. Recommendations appreciated. -Blood cx negative -Continue vancomycin 1500mg q12 for now. -Discontinue zosyn. -HIV and A1c levels ordered #Diarrhea: resolving -CT abdomen and pelvis - enlarged fatty liver; no colitis, no bowel inflammation , no obstruction -may be 2/2 acute gastroenteritis vs antibiotic associated diarrhea vs C. diff -stool cx and c.diff ordered. -Bacid started. #Headache and neck pain: improved -Likely due to ongoing cellulitis -Negative brudzinkski and Kernig's -Can not totally rule out meningitis, will continue to monitor for now -will hold off LP at this time -Tylenol q6 PRN for pain #FEN -Not on any standing fluids -Encourage increased oral fluid intake -HypoK, hypoMg, will replete as necessary -routine bmp monitoring -Regular diet #Prophylaxis -Heparin 5000 units sq tid #Disposition -admit to med-surg Visit type - Emergency Visit Emergency Visit: Yes ED Registration Date: 07/13/18 Care time: The patient presented to the Emergency Department on the above date and was hospitalized for further evaluation of their emergent condition. - New Patient This patient is new to me today: Yes Date on this admission: 07/16/18 - Critical Care Critical Care patient: No
[2018-07-15] MEDS ORDERED: PT OWN MED DRAWER 7, Y5N ONE (23:29)
[2018-07-16] MEDS: VANCOMYCIN 1,500 MG in DEXTROSE 5%-WATER - 500 ML IVPB SCH (02:01)
[2018-07-16] MEDS: HEPARIN NA (PORCINE) 5,000 UNITS/ML 1ML VIAL SQ SCH (06:13)
[2018-07-16 10:27] VITALS: BP 137/81; PULSE 71; TEMP 98.1
[2018-07-16] MEDS: LACTOBACILLUS ACIDOPHILUS 1 TABLET PO SCH (10:29)
--- NOTE | 2018-07-16 11:08 | PN ---
Progress Note, Physician History of Present Illness: Feeling better No c/o leg pain No c/o headache/ neck pain Diarrhea improved Temps down afebrile WBC improved 10K BC (-) C diff (-) Flu swab (-) - Current Medication List Current Medications: Active Medications Acetaminophen (Tylenol -) 650 mg PO Q6H PRN PRN Reason: Fever Or Pain Last Admin: 07/14/18 12:27 Dose: 650 mg Heparin Sodium (Porcine) (Heparin -) 5,000 unit SQ TID BLANQUITA Last Admin: 07/16/18 06:13 Dose: 5,000 unit Vancomycin HCl 1,500 mg/ (Dextrose) 500 mls @ 250 mls/hr IVPB Q12H BLANQUITA; Protocol Last Admin: 07/16/18 02:01 Dose: 250 mls/hr Lactobacillus Acidophilus (Bacid -) 1 tab PO DAILY BLANQUITA Last Admin: 07/16/18 10:29 Dose: 1 tab - Objective Vital Signs: Vital Signs Temperature 98.1 F 07/16/18 10:23 Pulse Rate 71 07/16/18 10:23 Respiratory Rate 20 07/16/18 10:23 Blood Pressure 137/81 07/16/18 10:23 O2 Sat by Pulse Oximetry (%) 97 07/15/18 21:00 Constitutional: Yes: No Distress, Obese Eyes: Yes: Conjunctiva Clear Cardiovascular: Yes: Regular Rate and Rhythm, S1, S2 Respiratory: Yes: CTA Bilaterally Gastrointestinal: Yes: Normal Bowel Sounds, Soft. No: Tenderness Extremities: Yes: Other (decreased R LE erythema/ warmth) Labs: CBC, BMP 07/15/18 06:30 07/15/18 06:30 INR, PTT INR 1.32 (0.83-1.09) H 07/14/18 07:00 Assessment/Plan Cellulitis R LE improved Sepsis secondary to cellulitis Fever/ leukocytosis- improved D/C vancomycin Keflex 500mg po q6h x 7d Elevation
--- NOTE | 2018-07-16 12:32 | PN ---
Teaching Attending Note Name of Resident: Susy Adams ATTENDING PHYSICIAN STATEMENT I saw and evaluated the patient. I reviewed the resident's note and discussed the case with the resident. I agree with the resident's findings and plan as documented. SUBJECTIVE:states pain has resolve.d. redness improved. denies CP, SOB, fever, chills, N/V/C/D. diarrhea has resolved OBJECTIVE: Last Vital Signs Temp Pulse Resp BP Pulse Ox 98.1 F 71 20 137/81 98 07/16/18 10:23 07/16/18 10:23 07/16/18 10:23 07/16/18 10:23 07/16/18 10:30 General NAD abdomen soft NT/ND obese neg rizzo sign Extremities R mid mccartney, erythema and tenderness resolved ASSESSMENT AND PLAN: 33yo M [facility] morbid obesity and recently treated for LLE cellulitis with 2 different abx (unknown names) presented with fever/chills/diarrhea and found to be septic due to RLE cellulitis 1. Sepsis due to RLE cellulitis- unclear source for infection. afebrile. clinically resolved. Cx all negative. will switch vanco to keflex to take for additional 7 days. cont bacid. 2. diarrhea- most likely antibiotic assoc diarrhea vs gastroenteritis however can not r/o cdiff. diarrhea resolved. 3. Enlarged GB- seen on CT. has no pain or symptoms. Bili normal. can f/u with surgeon as outpatient 4. SIMON- likely due to infection. now resolved. 5. Hypokalemia- due to diarrhea. resolved 6. Hypophosphatemia- resolved 7. Morbid obesity- BMI 55.8. counselled on lifestyle modifications. diet and weight loss. bariatric referral as outpatient 8. DVT ppx- hep sq 9. d/c on keflex. to f/u in resident clinic
--- NOTE | 2018-07-16 16:18 | DS ---
Physical Exam: SUBJECTIVE: Patient seen and examined OBJECTIVE: Vital Signs Period Temp Pulse Resp BP Sys/Forrester Pulse Ox Last 24 Hr 97.9 F-98.2 F 71-88 20-20 137-151/77-86 97-98 PHYSICAL EXAM GENERAL: The patient is awake, alert, and fully oriented, in no acute distress. HEAD: Normal with no signs of trauma. EYES: PERRLA, EOMI, sclera anicteric, conjunctiva clear. No ptosis. NECK: Trachea midline, full range of motion, supple. LUNGS: Breath sounds equal, clear to auscultation bilaterally. HEART: Regular rate and rhythm, S1, S2 without murmur, rub or gallop. ABDOMEN: Soft, nontender, nondistended, normoactive bowel sounds EXTREMITIES: 2+ pulses, warm, well-perfused, no edema. RLE: erythema, tenderness and warmth resolved. NEUROLOGICAL: Cranial nerves II through XII grossly intact. Normal speech, gait not observed. PSYCH: Normal mood, normal affect. SKIN: Warm, dry, normal turgor, no rashes or lesions noted LABS CBC, BMP 07/15/18 06:30 07/15/18 06:[address] abdomen and pelvis - Slightly suboptimal examination due to the patient's body habitus. Hepatomegaly wiht fatty infiltration. Elongated the/overdistended gallbladder measuing 10.8 cm in length with a questionable couple of tiny stones in the gallbladder neck region and without CT evidence of acute cholecystitis. Correlation with gallbladder ultrasound would be helpful for further evaluation. The rest of the examination appears unremarkable without CT evidence of an acute process in the abdomen pelvis. CXR- Cardiomegaly, no acute disease. HOSPITAL COURSE: Date of Admission:07/13/18 Date of Discharge: 07/16/18 Patient is a 33 year old male with past medical history of morbid obesity, presented with chills, vomiting, diarrhea for 2 days. Patient also noted redness and pain on the RLE. He was noted to be tachycardic and febrile at the ED. Of note, patient was treated recently for LLE cellulitis with 2 oral and 1 topical antibiotics. Patient was admitted for sepsis secondary to RLE cellulitis. He was started on IV Vancomycin and Zosyn, and blood cultures were taken. CT abdomen and pelvis was done to assess the diarrhea that has resolved since admission. The RLE cellulitis continued to improve throughout the hospital stay. On fourth hospital day, patient was discharged, with instructions to complete a 7-day course of Keflex 500mg q6h. Minutes to complete discharge: 40 Discharge Summary Reason For Visit: DIARRHEA/SEPSIS Condition: Improved - Instructions Diet, Activity, Other Instructions: You were admitted because you had diarrhea and vomiting, that has since resolved. CAT scan of the belly was done which revealed gallstones (stones in your gallbladder). Please follow-up with Surgery (Dr. Leyva) as outpatient for further management of the stones. Eat a low-fat diet and drink plenty of water. You can take over the counter probiotics that may help protect your bowels. Take this for 1 month. You were also noted to have a skin infection on your right leg. You were treated with IV antibiotics. You will continue taking antibiotics at home for a few more days. Keep the area clean and dry at all times. Elevate the legs when sitting down. Follow a low fat diet and start exercise 3x/week for 30 minutes each session with goal to loose 1-2lbs/week. Please take the following medications as prescribed: 1. Keflex 500mg every 6 hours (4x a day) for 1 week. Follow ups: -Follow-up with Surgery (Dr. Leyva) in 1-2 weeks . Call the office to schedule an appointment. -Follow-up with your primary care doctor in 1 week. If you do not have one, you can call [phone] to schedule an appointment at the medical clinic in [facility]. Call 911 or go to the ED if with any worsening headache, vomiting, diarrhea, abdominal pain, leg pain, leg swelling or any new concerns noted. Referrals: Constantine Leyva MD [Staff Physician] - 1 Week Susy Adams RES [Resident] - 1 Week (Primary care- resident) Disposition: HOME - Home Medications Comprehensive Discharge Medication List: Ambulatory Orders Cephalexin [Keflex] 500 mg PO Q6H #28 capsule 07/16/18 Lactobacillus Acidophilus [Bacid -] 1 tab PO DAILY #30 tab 07/16/18 This patient is new to me today: Yes Date on this admission: 07/18/18 Emergency Visit: Yes ED Registration Date: 07/13/18 Care time: The patient presented to the Emergency Department on the above date and was hospitalized for further evaluation of their emergent condition. Critical Care patient: No - Discharge Referral Referred to [facility] Med P.C.: No
== END 2018-07-16 14:14 | disposition home or self-care (01) | DRG 872 ==
LOC: JER 15:19 → JERBED 20:34 → UNDOADMIN 23:41 → JERBED 23:41 → J5S 07-14 04:15
PROVIDERS: ADMIT Internal Medicine; ATTEND Internal Medicine
DX: A41.9 Sepsis, unspecified organism (principal); L03.116 Cellulitis of left lower limb; Z68.43 Body mass index [BMI] 50.0-59.9, adult; R19.7 Diarrhea, unspecified; E66.01 Morbid (severe) obesity due to excess calories; I51.7 Cardiomegaly; R51 Headache; E87.6 Hypokalemia; E83.39 Other disorders of phosphorus metabolism; Z87.891 Personal history of nicotine dependence; K76.0 Fatty (change of) liver, not elsewhere classified; M54.2 Cervicalgia; D72.829 Elevated white blood cell count, unspecified; K82.8 Other specified diseases of gallbladder; R00.0 Tachycardia, unspecified
CPT/HCPCS: 36415; 71045-TC-FY; 74176-TC; 80048; 80053; 81003; 81015; 82803; 83036; 83605; 83735; 84100; 85025; 85610; 85730; 87040; 87086; 87324; 87389; 87449; 87804; 90688; 93005; 93010; 99283-25; G0008; G0480; J0131; J1644; J7030